=== PATIENT | female | born 1980 ===

== ENCOUNTER → 2020-07-29 10:59 | Outpatient (BNVA) | payer OTHER, SELFPAY | PROVIDERS: PCP Internal Medicine; Visit Provider Orthopaedic Surgery | DX: G56.01 Carpal tunnel syndrome, right upper limb (principal); M65.311 Trigger thumb, right thumb | CPT/HCPCS: 99202 ==

== ENCOUNTER 2020-11-25 15:00 | Outpatient (RCR) | payer OTHER, SELFPAY | END 2021-02-27 08:59 | disposition home or self-care (01) | LOC: HO.OT 15:00 | PROVIDERS: PCP Internal Medicine; Visit Provider Internal Medicine | DX: I67.5 Moyamoya disease (principal); R53.1 Weakness; Z86.73 Personal history of transient ischemic attack (TIA), and cerebral infarction without residual deficits | CPT/HCPCS: 97110; 97140; 97167 ==

== ENCOUNTER → 2021-01-28 10:30 | Outpatient (BNVA) | payer OTHER, SELFPAY | PROVIDERS: PCP Internal Medicine; Visit Provider Nurse Practitioner Family | DX: R53.1 Weakness (principal); I67.5 Moyamoya disease; I69.30 Unspecified sequelae of cerebral infarction; F19.90 Other psychoactive substance use, unspecified, uncomplicated; M53.3 Sacrococcygeal disorders, not elsewhere classified; M25.561 Pain in right knee | CPT/HCPCS: 99202 ==

== ENCOUNTER → 2021-06-12 13:52 | Outpatient (BNVA) | payer OTHER, SELFPAY | PROVIDERS: PCP Internal Medicine; Referring Provider Internal Medicine; Visit Provider Physician Assistant Surgical ==

== ENCOUNTER → 2021-06-16 08:05 | Outpatient (BNVA) | payer OTHER, SELFPAY | PROVIDERS: PCP Internal Medicine; Visit Provider Surgery ==

== ENCOUNTER → 2021-07-22 08:09 | Outpatient (BNVA) | payer OTHER, SELFPAY | PROVIDERS: PCP Internal Medicine; Visit Provider Dietitian, Registered | DX: E66.01 Morbid (severe) obesity due to excess calories (principal); Z68.37 Body mass index [BMI] 37.0-37.9, adult | CPT/HCPCS: 97802 ==

== ENCOUNTER 2023-05-11 14:18 | Outpatient (AMB) | payer MEDICARE, SELFPAY ==
[2023-05-11 14:21] VITALS: BP 140/92; PULSE 88; O2SAT 99; BMI 34.9
--- NOTE | 2023-05-11 14:21 | AM.OFFVISMDC ---
Intake Vital Signs 05/11/23 14:21 Height 5 ft 4.5 in Weight 206 lb 8 oz BMI 34.9 BP 140/92 H Blood Pressure Location Lt brachial Position Sitting Pulse 88 Pulse Source Pulse Oximeter Pulse Oximetry (%) 99 Oxygen Delivery Method Room Air Intake Visit Reasons: AWV Tour Sales Representative Required: No Photographic Laboratory Supervisor: Photographic Laboratory Supervisor Present Accompanied by: Spouse Allergies levofloxacin [From LEVAQUIN] Allergy (Unknown, Verified 05/11/23 14:22) UNKNOWN HPI HPI Comments History of Present Illness Details 42-year-old female past medical history significant for hypertension, high cholesterol, substance use disorder, major depression, chronic pain syndrome, obesity, anxiety, GERD right foot. Patient last seen in November 2019 patient presents today for subsequent annual wellness visit. Pap smear: Referral entered. mammogram: ordered eye exam: UTD Patient reports lingering right sided weakness from past stroke. Patient requesting to continue PT with Corinna MARCUSA, form signed. Patient reports recent insurance issues and states she has been unable to follow-up with her psychiatrist, patient requesting refills on amitriptyline, Abilify 10 mg at bedtime and her clonazepam. Patient made aware that one-month supply will be sent on daily medications and 10 day supply sent on clonazepam 1 mg b.i.d. p.r.n. QT#20. Patient made aware future refills will need to come for her psychiatrist or will be up to the discretion of her primary care provider. [place] of care was reviewed with patient patient was provided with a written screening schedule. Healthcare proxy and MOLST forms reviewed with patient patient advised to bring completed forms in office to be scanned into chart. [facility] Medical History GERD (gastroesophageal reflux disease) Anxiety Depression Migraines Morbid obesity Chronic pain syndrome Carpal tunnel syndrome on right Substance use disorder Neck pain History of stroke with current residual effects High cholesterol Hypertension H/O stroke without residual deficits Surgical History H/O brain surgery History of cholecystectomy Family History Mother High blood pressure Cycloid psychosis Mental health disorder Father High blood pressure Diabetes 1.5, managed as type 2 Liver disease Substance use disorder Mental health disorder Sister Mental health disorder Sister Mental health disorder Social History Housing: Apartment Alcohol intake: former Patient Tobacco Use Status: Current everyday Tobacco user Tobacco use type: Cigarette Cigarettes Per Day: 7 e-Cigarette/Vaping Use: Never Used service: No Current occupational status: unemployed and disabled Current occupation: disability Cognitive needs: Yes Hearing needs: No Vision needs: No Questionnaire Medicare Wellness Checkup What gender do you identify with?: female During the past 4 weeks, how much have you been bothered by emotional problems such as feeling anxious, depressed, irritable, sad or downhearted, and blue?: extremely During the past 4 weeks, has your physical & emotional health limited your social activities with family, friends, neighbors, or groups?: moderately During the past 4 weeks, how much bodily pain have you generally had?: moderate pain During the past 4 weeks, was someone available to help you if you needed & wanted help?: yes, quite a bit During the past 4 weeks, what was the hardest physical activity you could do for at least 2 minutes?: light Can you get to places out of walking distance without help? (For eg., can you travel alone on buses, taxis or drive your car?): No Can you go shopping for groceries or clothes without someone's help?: No Can you prepare your own meals?: No Can you do your housework without help?: No Because of any health problems, do you need the help of another person with your personal care needs such as eating, bathing, dressing or getting around the house?: Yes Can you handle your own money without help?: Yes During the past 4 weeks, how would you rate your health in general?: fair During the past 4 weeks how have things been going for you?: good & bad parts about equal Are you having difficulties driving your car?: not applicable, I don't use a car Do you always fasten your seat belt when you are in a car?: yes, usually During past 4 weeks, have you been bothered by the following: seldom: Sexual problems? and Teeth or denture problems?, sometimes: Falling or dizzy when standing up, Trouble eating well? and Problems using the telephone? and always: Tiredness or fatigue? Have you fallen 2 or more times in the past year?: Yes Are you afraid of falling?: Yes Are you a smoker?: yes, and I might quit During the past 4 weeks, how many drinks of wine, beer, or other alcoholic beverages did you have?: 1 drink or less per week Do you exercise for about 20 minutes 3 or more times a week?: no, I usually do not exercise this much Have you been given information to help with the following?: yes: Keeping track of your medications? and no: Hazards in your house that might hurt you? How often do you have trouble taking medicines the way you have been told to take them?: I always take medicine as prescribed How confident are you that you can control & manage most of your health problems?: somewhat confident What is your race?: Black or (White ) Mini Mental State Exam (MMSE) Orientation What is the (year) (season) (date) (day) (month)?: year, season, date, day and month Score Score: 5 Activity of Daily Living Bathing - sponge bath, tub bath or shower: receives help in bathing only one body part (such as back or leg) Dressing - getting clothes from closets & drawers, including inner/outer garments & fasteners.: gets clothes & gets dressed without help, except for help tying shoes Toileting - going to the 'toilet room' for urine/bowel elimination & cleaning self/arranging clothes: receives help going to toilet room, cleaning self or arranging clothes Transfer: moves in & out of bed and chair without help (may use support object) Continence: controls urination/bowel movements completely by self Feeding: feeds self without help Total Score: 0 Information obtained from: patient Using telephone: independent Traveling: dependent Shopping: needs assistance Preparing meals: needs assistance Housework: needs assistance Taking medicine: needs assistance Managing money: needs assistance PHQ-9 Over the last 2 weeks, how often have you been bothered by any of the following problems? 1. Little interest or pleasure in doing things: several days 2. Feeling down, depressed, or hopeless: more than half the days 3. Trouble falling or staying asleep, or sleeping too much: nearly every day 4. Feeling tired or having little energy: more than half the days 5. Poor appetite or overeating: not at all 6. Feeling bad about yourself - or that you are a failure or have let yourself or your family down: several days 7. Trouble concentrating on things, such as reading the newspaper or watching television: more than half the days 8. Moving or speaking so slowly that other people could have noticed. Or the opposite - being so fidgety or restless that you have been moving around a lot more than usual: nearly every day 9. Thoughts that you would be better off or of hurting yourself in some way: not at all Total score: 14 Depression Screening Interpretation: Positive Depression Screening Follow-up: In treatment Depression Screening Done: Yes 21265 - PHQ-9 Billing: Yes Source: Developed by Drs. Ramsey Winn, Mariam Huerta, Mickey Vazquez and colleagues, with an educational jadon from [employer]. Physical Exam Vital Signs: Last Vital Signs Pulse 88 05/11/23 14:21 BP 140/92 H 05/11/23 14:21 Pulse Ox 99 05/11/23 14:21 Oxygen Delivery Method Room Air 05/11/23 14:21 BMI result Body Mass Index 34.9 Const General: cooperative and no acute distress Orientation/consciousness: patient oriented x3 HEENT Ears: other (whisper test: pass) Neuro General: patient oriented x3 Gait exam (Neuro): Normal gait present Coordination: tandem gait normal and Romberg test negative Assessment & Plan Assessment & Plan (1) Hypertension: Code(s): I10 - Essential (primary) hypertension Qualifiers: Hypertension type: essential hypertension Qualified Code(s): I10 - Essential (primary) hypertension Plan: Lisinopril 20 mg sent to patient's pharmacy Follow low-salt diet and exercise (2) High cholesterol: Code(s): E78.00 - Pure hypercholesterolemia, unspecified Plan: Continue on atorvastatin 80 mg daily. Follow low-cholesterol diet. (3) Medicare annual wellness visit, subsequent: Code(s): Z00.00 - Encounter for general adult medical examination without abnormal findings Plan: Follow-up in 1 year for subsequent annual wellness visit (4) Depression: Code(s): F32.A - Depression, unspecified Plan: One-month supply sent on patient's amitriptyline, Abilify and clonazepam; QT 20 Patient advised to reestablish care with her psychiatrist. Future refills will be up to the discretion of her primary care provider. Plan Follow up in 1 year for [facility] Orders: Orders Comprehensive [place]. Panel Fast 05/11/23 I10 - Essential (primary) hypertension Lipid Panel 05/11/23 Z13.220 - Encounter for screening for lipoid disorders TSH reflex Free T4 05/11/23 Z13.29 - Encounter for screening for other suspected endocrine disorder MM screening mammo BI 05/11/23 Z12.31 - Encounter for screening mammogram for malignant neoplasm of breast Complete Blood Count Auto Diff 05/11/23 Z13.0 - Encounter for screening for diseases of the blood and blood-forming organs and certain disorders involving the immune mechanism Referrals LABELING SPECIALIST Referral Z12.4 - Encounter for screening for malignant neoplasm of cervix Medications: New aripiprazole (Abilify) 10 mg PO BEDTIME 30 tabs 0RF Changed From clonazepam 1 mg PO TID PRN 30 tabs 0RF anxiety To clonazepam 1 mg PO BID PRN 20 tabs 0RF anxiety Refilled clopidogrel 75 mg PO DAILY 30 tabs 0RF amitriptyline 50 mg (2 x 25 mg) PO BEDTIME 60 tabs 1RF atorvastatin 80 mg PO DAILY 90 tabs 1RF lisinopril 20 mg PO DAILY 90 tabs 1RF Quality Reporting (2019) Depression/Bipolar (159/160/161/177) PHQ-9: Total score: 14 Coding Level of Care Code Medicare Subsequent (G0439) Diagnoses Essential hypertension I10 Hypertension type: essential hypertension High cholesterol E78.00 Medicare annual wellness visit, subsequent Z00.00 Depression F32.A CPT Codes Advance Care Planning - Time spent: 1-15 minutes, on File ([id number]) Advance Care Planning Date of discussion: 05/11/23 Forms completed: Health Care Proxy and MOLST Time spent: 1-15 minutes, on File Actual minutes spent: 2
== END 2023-05-11 15:04 | disposition home or self-care (01) ==
PROVIDERS: PCP Internal Medicine; Visit Provider Nurse Practitioner Family
DX: I10 Essential (primary) hypertension (principal); E78.00 Pure hypercholesterolemia, unspecified; Z00.00 Encounter for general adult medical examination without abnormal findings; F32.A Depression, unspecified
CPT/HCPCS: 1123F; G0439

== ENCOUNTER 2023-06-14 12:56 | Outpatient (AMB) | payer MEDICARE, SELFPAY ==
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
[2023-06-14 13:18] VITALS: BP 146/80; PULSE 81; O2SAT 99; BMI 33.8
== END 2023-06-14 14:06 | disposition home or self-care (01) ==
PROVIDERS: PCP Internal Medicine; Visit Provider Internal Medicine
DX: S93.601A Unspecified sprain of right foot, initial encounter (principal); R53.1 Weakness
CPT/HCPCS: 99214

== ENCOUNTER 2023-06-14 14:17 | Outpatient (REF) | payer MEDICARE, SELFPAY | END 2023-06-14 14:18 | disposition home or self-care (01) | LOC: HO.XRAY 14:17 | PROVIDERS: PCP Internal Medicine; Visit Provider Internal Medicine | DX: Z13.89 Encounter for screening for other disorder (principal) ==

== ENCOUNTER 2023-06-18 15:26 | Outpatient (REF) | payer OTHER, MEDICARE, SELFPAY ==
--- NOTE | ~2023-06-18 | XR_ITS ---
EXAMINATION: XR FOOT, RIGHT CLINICAL INFORMATION: Sprain/injury COMPARISON: None available. TECHNIQUE: AP, lateral, and oblique views of the right foot. FINDINGS: Medial soft tissues of the foot appear prominent. Bony density identified adjacent to the navicular on AP view. Dorsal spurring on lateral view. Calcaneal spurring. XR/XR foot RT min 3V IMPRESSION: Soft tissue swelling medial foot. Accessory navicular versus fracture, correlate clinically.
== END 2023-06-18 15:27 | disposition home or self-care (01) ==
LOC: HO.XRAY 15:26
PROVIDERS: PCP Internal Medicine; Visit Provider Internal Medicine
DX: S93.601A Unspecified sprain of right foot, initial encounter (principal)
CPT/HCPCS: 73630

== ENCOUNTER 2023-07-05 13:50 | Outpatient (AMB) | payer MEDICARE, SELFPAY ==
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
[2023-07-05 14:08] VITALS: BMI 33.8
== END 2023-07-05 14:46 | disposition home or self-care (01) ==
PROVIDERS: PCP Internal Medicine; Visit Provider Physician Assistant
DX: S92.251A Displaced fracture of navicular [scaphoid] of right foot, initial encounter for closed fracture (principal)
CPT/HCPCS: 99213

== ENCOUNTER → 2023-07-05 13:50 | Outpatient (BNVA) | payer MEDICARE, MEDICAID, SELFPAY | PROVIDERS: PCP Internal Medicine; Visit Provider Physician Assistant | DX: S92.251A Displaced fracture of navicular [scaphoid] of right foot, initial encounter for closed fracture (principal) | CPT/HCPCS: 99212 ==

== ENCOUNTER 2023-08-16 10:01 | Outpatient (AMB) | payer MEDICARE, SELFPAY ==
--- NOTE | 2023-08-16 10:04 | A.OFFVIS_ITS ---
Intake Vital Signs 08/16/23 10:11 Height 5 ft 4.5 in Weight 200 lb BMI 33.8 Intake Visit Reasons: OV- possible RT Foot navicular fracture-follow up Intake Note: Phuong a 42 year old female presents today for a follow up s/p fracture of navicular bone of right foot, DOI 06/02/23. Patient reports she is unable to move her middle or big toe. She weaned out of walking boot into a regular shoe a couple of days ago. Finds some relief with Motrin. Allergies levofloxacin [From LEVAQUIN] Allergy (Unknown, Verified 08/16/23 10:11) UNKNOWN HPI OV- possible RT Foot navicular fracture-follow up HPI Details 42-year-old female who returns to the [facility] today for a follow-up of right foot fracture, 06/02/23. She states she is unable to move her middle or big toe. She has discontinued her walking boot and has been using a regular shoe for about 2 days. She finds mild relief with Motrin. She has no other concerns today. [facility] Medical History (Updated 08/17/23 @ 16:09 by Marshall Schultz PA-C) GERD (gastroesophageal reflux disease) Anxiety Depression Migraines Morbid obesity Chronic pain syndrome Carpal tunnel syndrome on right Substance use disorder Neck pain History of stroke with current residual effects High cholesterol Hypertension H/O stroke without residual deficits Surgical History History of foot surgery H/O brain surgery History of cholecystectomy Family History Mother High blood pressure Cycloid psychosis Mental health disorder Father High blood pressure Diabetes 1.5, managed as type 2 Liver disease Substance use disorder Mental health disorder Sister Mental health disorder Sister Mental health disorder Social History Housing: Apartment Alcohol intake: former Patient Tobacco Use Status: Current everyday Tobacco user Tobacco use type: Cigarette Cigarettes Per Day: 2 e-Cigarette/Vaping Use: Never Used Second Hand Smoke Exposure: Yes service: No Current occupational status: unemployed and disabled Current occupation: disability Cognitive needs: Yes Hearing needs: No Vision needs: No Review of Systems Const All systems reviewed & are unremarkable except as noted in HPI and below Physical Exam Vital Signs: BMI result Body Mass Index 33.8 Extrem Other: Right foot: Normal to inspection. No swelling. She has mild swelling at the dorsum of foot over the lateral edge. No pain over the base of 5th metatarsal. No pain over the medial and lateral malleolus. She has good temperature and color. Pulses are present. ROM could not be performed as she has paralysis from a previous stroke. Results Reviewed Results Reviewed: xrays of the right foot obained in the ED show navicuar avulsion fragment of underminate age - there does appear to be some callus formation since previous imaging Assessment & Plan Assessment & Plan (1) Avulsion fracture of navicular bone of foot: Code(s): S92.253A - Displaced fracture of navicular [scaphoid] of unspecified foot, initial encounter for closed fracture Qualifiers: Encounter type: subsequent encounter Fracture type: closed Laterality: right Fracture healing: with routine healing Qualified Code(s): S92.251D - Displaced fracture of navicular [scaphoid] of right foot, subsequent encounter for fracture with routine healing Plan She was transitioned to a lace up ankle brace which she will continue to use along with physical therapy to work on ROM, strengthening and proprioceptive training. She can increase activity as tolerated and If symptoms persist or worsens over 6-8 weeks, patient will contact the office, otherwise follow-up as needed. 6-8 weeks Orders: Orders XR foot RT min 3V 08/16/23 S92.351A - Displaced fracture of fifth metatarsal bone, right foot, initial encounter for closed fracture PT Evaluation and Treatment 08/16/23 S92.253A - Displaced fracture of navicular [scaphoid] of unspecified foot, initial encounter for closed fracture Patient Instructions: Scribed for Marshall Schultz PA-C, by David Aceves medical administrative assistant, on 08/16/2023 at 10:00 AM EST. IMarshall PA-C, have personally reviewed and agree with the information entered by the scribe. Coding Level of Care Code Global (33180) Diagnoses Closed avulsion fracture of navicular bone of right foot with routine healing, subsequent encounter S92.251D Encounter type: subsequent encounter Fracture type: closed Laterality: right Fracture healing: with routine healing
[2023-08-16 10:11] VITALS: BMI 33.8
== END 2023-08-16 11:57 | disposition home or self-care (01) ==
PROVIDERS: PCP Internal Medicine; Visit Provider Physician Assistant
DX: S92.251D Displaced fracture of navicular [scaphoid] of right foot, subsequent encounter for fracture with routine healing (principal)
CPT/HCPCS: 99213

== ENCOUNTER 2023-08-16 16:55 | Outpatient (REF) | payer OTHER, MEDICARE, SELFPAY ==
--- NOTE | ~2023-08-16 | XR_ITS ---
EXAMINATION: XR FOOT, RIGHT CLINICAL INFORMATION: Fracture of the fifth metatarsal bone. COMPARISON: Radiograph right foot 06/18/2023. TECHNIQUE: AP, lateral, and oblique views of the right foot. FINDINGS: Again noted well-corticated osseous fragment adjacent to the navicular bone, suggestive of accessory navicular versus old fracture. No acute fractures or subluxation. Normal radiographic appearance of the fifth metatarsal. Mild degenerative arthrosis of the first MTP joint. Prominent bony productive changes along the dorsal surface of the navicular bone on the lateral view, sequela of degenerative changes. Moderate size calcaneal spurs. Os trigonum. XR/XR foot RT min 3V IMPRESSION: 1. No acute fractures or subluxation. 2. Chronic findings as above.
== END 2023-08-16 16:56 | disposition home or self-care (01) ==
LOC: HO.HOSX 16:55
PROVIDERS: Visit Provider Physician Assistant
DX: S92.251D Displaced fracture of navicular [scaphoid] of right foot, subsequent encounter for fracture with routine healing (principal)
CPT/HCPCS: 73630; 99212

== ENCOUNTER 2023-10-27 10:03 | Outpatient (AMB) | payer MEDICARE, MEDICAID, SELFPAY ==
--- NOTE | 2023-10-27 10:07 | MHC.PC.OV ---
Vital Signs 10/27/23 10:09 Height 5 ft 4.5 in Weight 211 lb 4 oz BMI 35.7 BP 110/60 Blood Pressure Location Lt brachial Position Sitting Pulse 70 Pulse Source Pulse Oximeter Pulse Oximetry (%) 100 Oxygen Delivery Method Room Air Intake Visit Reasons: 3mth f/u med Intake Note: Patient is here to follow up on Chronic pain disorder, HTN, GERD. Hospital Personnel Director Required: No Machine Lay Out Worker: Present Accompanied by: Significant Other Allergies levofloxacin [From LEVAQUIN] Allergy (Unknown, Verified 10/27/23 11:04) UNKNOWN Medication List - Last Reconciled 10/27/23 by Jose Khoury MD amitriptyline 50 mg (2 x 25 mg) PO BEDTIME aripiprazole (Abilify) 10 mg PO BEDTIME atorvastatin 80 mg PO DAILY cholecalciferol (vitamin D3) (Vitamin D3) 50 mcg PO DAILY clonazepam 1 mg PO BID PRN clopidogrel 75 mg PO DAILY cyclobenzaprine 5 mg PO BID PRN 30 days furosemide 20 mg PO BID 10 days gabapentin 800 mg PO TID 15 days ibuprofen 800 mg PO DAILY lisinopril 20 mg PO DAILY miscellaneous medical supply 1 ea miscellaneous DAILY nicotine 1 patch transdermal DAILY Tobacco use date assessed: 10/27/23 Dental Screening Dental Screen Date: 06/14/23 HPI 3mth f/u med HPI Details 43-year-old female presents to the office to discuss her chronic medical conditions. She is accompanied by her CAKE INSPECTOR. Patient reports that she has been doing well since her last office visit. Her foot pain is much better. She now has permanent weakness in her right upper arm and right lower leg. She needs assistance while walking. Currently, she is holding on to her CAKE INSPECTOR while ambulating. She needs help to get on and out of bed, with her clothing and combing hair. She is able to use the toilet independently. Needs assistance with brushing hair. Does not drive at all. Appetite is normal. Continues to see her psychiatrist and has an upcoming appointment on November 09. Patient is getting her Abilify, clonazepam through him. Patient was seeing a information technology consultant and no longer sees him. She sees a neurologist once a year for her moyamoya disease. She is on Plavix for the same. [facility] Medical History GERD (gastroesophageal reflux disease) Anxiety Depression Migraines Morbid obesity Chronic pain syndrome Carpal tunnel syndrome on right Substance use disorder Neck pain History of stroke with current residual effects High cholesterol Hypertension H/O stroke without residual deficits Surgical History History of foot surgery H/O brain surgery History of cholecystectomy Family History Mother High blood pressure Cycloid psychosis Mental health disorder Father High blood pressure Diabetes 1.5, managed as type 2 Liver disease Substance use disorder Mental health disorder Sister Mental health disorder Sister Mental health disorder Social History Housing: Apartment Alcohol intake: former Patient Tobacco Use Status: Current everyday Tobacco user Tobacco use type: Cigarette Cigarettes Per Day: 6 e-Cigarette/Vaping Use: Never Used Second Hand Smoke Exposure: Yes service: No Current occupational status: unemployed and disabled Current occupation: disability Cognitive needs: Yes Hearing needs: No Vision needs: No Questionnaire Thrive Questionnaire Date Thrive assessed: 06/14/23 TRUDY-7 AMB Questionnaire TRUDY-7 Date TRUDY - 7 assessed: 06/14/23 Source: Developed by Drs. Ramsey Winn, Mariam Huerta, Mickey Vazquez and colleagues, with an educational jadon from [employer]. Physical exam (Primary Care) Vital Signs: Last Vital Signs Pulse 70 10/27/23 10:09 BP 110/60 10/27/23 10:09 Pulse Ox 100 10/27/23 10:09 Oxygen Delivery Method Room Air 10/27/23 10:09 Care Plan Goal for BP management: Blood pressure is in range. BMI result Body Mass Index 35.7 BMI Assessment/Plan discussion: High (1 lb per week weight loss suggested.) BMI High, discussed plan: lifestyle, weight reduction, dietary and physical activity Tobacco/Smoking Status: Tobacco use Status Tobacco use date assessed 10/27/23 10/27/23 10:14 Patient Tobacco Use Status Current everyday Tobacco 10/27/23 10:14 Tobacco use type Cigarette 10/27/23 10:14 e-Cigarette/Vaping Use Never Used 10/27/23 10:14 Are you ready to quit: No Thrive Assessment: Date of Thrive Assessment Date Thrive assessed 06/14/23 10/27/23 10:14 Const General: cooperative and healthy appearing Nutritional Appearance: well nourished Orientation/consciousness: patient oriented x3 Limitations: no limitations HENMT Head: Yes normal to inspection Eyes General: appearance normal, both eyes and all related structures Neck Neck: Yes normal visual inspection Chest Chest palpation & inspection: normal palpation of entire chest wall Resp Effort & Inspection: normal respiratory effort Neuro Other: Residual motor deficit in the right upper and lower extremity. General: patient oriented x3 Assessment and Plan Assessment & Plan (1) Morbid obesity: Code(s): E66.01 - Morbid (severe) obesity due to excess calories Plan: Counseling on the importance of diet and exercise done. (2) Major depression: Code(s): F32.9 - Major depressive disorder, single episode, unspecified Plan: Patient is receiving care through the psychiatrist. Continue current medications. (3) Moyamoya disease: Code(s): I67.5 - Moyamoya disease Plan: Her neurologist will be consulted. Should Plavix be continued? This has to be discussed with a neurologist. (4) Hypertension: Code(s): I10 - Essential (primary) hypertension Qualifiers: Hypertension type: essential hypertension Qualified Code(s): I10 - Essential (primary) hypertension Plan: Blood pressure is stable. Continue current medications Medications: Refilled cyclobenzaprine 5 mg PO BID PRN 60 tabs 1RF muscle spasm 30 days Discontinued verapamil Discontinued Reason: Doctor's Order 40 mg PO DAILY PRN 30 tabs 0RF migraines MDD one tab Coding Level of Care Code Est Pt Level 4 (40521) Complex EM visit Add On G2211 Diagnoses Morbid obesity E66.01 Major depression F32.9 Moyamoya disease I67.5 Essential hypertension I10 Hypertension type: essential hypertension
[2023-10-27 10:09] VITALS: BP 110/60; PULSE 70; O2SAT 100; BMI 35.7
== END 2023-10-27 10:58 | disposition home or self-care (01) ==
PROVIDERS: PCP Internal Medicine; Visit Provider Internal Medicine
DX: F33.9 Major depressive disorder, recurrent, unspecified (principal); I67.5 Moyamoya disease; I10 Essential (primary) hypertension
CPT/HCPCS: 99214; G2211

== ENCOUNTER 2024-02-03 14:55 | Outpatient (AMB) | payer MEDICARE, MEDICAID, SELFPAY ==
--- NOTE | 2024-02-03 14:56 | A.OFFPC_ITS ---
Vital Signs 02/03/24 14:58 Height 5 ft 4.5 in Weight 208 lb BMI 35.1 BP 136/70 Blood Pressure Location Rt brachial Position Sitting Pulse 82 Pulse Source Pulse Oximeter Pulse Oximetry (%) 96 Oxygen Delivery Method Room Air Intake Visit Reasons: 3mth f/u Intake Note: Patient is here to follow up on GERD, Chronic Pain, HTN. Concern of broken right leg, waiting for Orth appt on 03/09/24. Tub Operator Required: No Commercial Insulator: Present Accompanied by: Significant Other Allergies levofloxacin [From LEVAQUIN] Allergy (Unknown, Verified 02/03/24 14:57) UNKNOWN Tobacco use date assessed: 02/03/24 Dental Screening Dental Screen Date: 06/14/23 HPI 3mth f/u HPI Details 43-year-old female presents to the offic e to discuss her chronic medical conditions. Patient comes in a wheelchair and is accompanied by a male director of flight operations. Patient slipped from a sliding chair at home. She twisted her right ankle. She was seen at the emergency room and a diagnosis of fracture of the lateral malleolus was made. Patient was provided with a boot. She is awaiting an orth opedic appointment. In addition, she is requesting a refill on her amitriptyline, gabapentin and clonazepam. She is still getting settled in with her psychiatrist and is requesting an interim supply of clonazepam. [facility] Medical History GERD (gastroesophageal reflux disease) Anxiety Depression Migraines Morbid obesity Chronic pain syndrome Carpal tunnel syndrome on right Substance use disorder Neck pain History of stroke with current residual effects High cholesterol Hypertension H/O stroke without residual deficits Surgical History History of foot surgery H/O brain surgery History of cholecystectomy Family History Mother High blood pressure Cycloid psychosis Mental health disorder Father High blood pressure Diabetes 1.5, managed as type 2 Liver disease Substance use disorder Mental health disorder Sister Mental health disorder Sister Mental health disorder Social History Housing: Apartment Alcohol intake: former Patient Tobacco Use Status: Current everyday Tobacco user Tobacco use type: Cigarette Cigarette Packs Per Day: 0.5 Cigarettes Per Day: 6 e-Cigarette/Vaping Use: Never Used Second Hand Smoke Exposure: Yes service: No Current occupational status: unemployed and disabled Current occupation: disability Cognitive needs: Yes Hearing needs: No Vision needs: No Questionnaire Thrive Questionnaire Date Thrive assessed: 06/14/23 TRUDY-7 AMB Questionnaire TRUDY-7 Date TRUDY - 7 assessed: 06/14/23 Source: Developed by Drs. Ramsey Winn, Mariam Huerta, Mickey Vazquez and colleagues, with an educational jadon from [employer]. Fall Risk Assessment Fall Risk Assessment Fall risk assessment: 2 + Falls in past year (3 falls within a week.) Physical exam (Primary Care) Vital Signs: Last Vital Signs Pulse 82 02/03/24 14:58 BP 136/70 02/03/24 14:58 Pulse Ox 96 02/03/24 14:58 Oxygen Delivery Method Room Air 02/03/24 14:58 BMI result Body Mass Index 35.1 Tobacco/Smoking Status: Tobacco use Status Tobacco use date assessed 02/03/24 02/03/24 15:11 Patient Tobacco Use Status Current everyday Tobacco 02/03/24 14:56 Tobacco use type Cigarette 02/03/24 14:56 e-Cigarette/Vaping Use Never Used 02/03/24 14:56 Thrive Assessment: Date of Thrive Assessment Date Thrive assessed 06/14/23 02/03/24 14:56 Extrem Other: Right ankle: Swelling over the ankle and the front of the foot. Patient does not want to try weight-bearing. Assessment and Plan Assessment & Plan (1) Substance use disorder: Code(s): F19.90 - Other psychoactive substance use, unspecified, uncomplicated Plan: Continue methadone at same dosage. (2) Fracture of right ankle, lateral malleolus: Code(s): S82.61XA - Displaced fracture of lateral malleolus of right fibula, initial encounter for closed fracture Plan: X-ray report from the emergency room requested and reviewed. An oblique, nondisplaced fracture of the lateral malleolus is reported. Orthopedics will be contacted to see if an earlier appointment can be made. Medications: Refilled amitriptyline 50 mg (2 x 25 mg) PO BEDTIME 60 tabs 1RF clonazepam 1 mg PO BID PRN 20 tabs 0RF anxiety gabapentin 800 mg PO TID 45 tabs 0RF 15 days Coding Level of Care Code Est Pt Level 4 (03300) Complex EM visit Add On G2211 Diagnoses Substance use disorder F19.90 Fracture of right ankle, lateral malleolus S82.61XA
[2024-02-03 14:58] VITALS: BP 136/70; PULSE 82; O2SAT 96; BMI 35.1
== END 2024-02-03 15:51 | disposition home or self-care (01) ==
PROVIDERS: PCP Internal Medicine; Visit Provider Internal Medicine
DX: F19.90 Other psychoactive substance use, unspecified, uncomplicated (principal); S82.61XA Displaced fracture of lateral malleolus of right fibula, initial encounter for closed fracture
CPT/HCPCS: 99214; G2211

== ENCOUNTER 2024-02-25 11:22 | Outpatient (REF) | payer MEDICARE, SELFPAY ==
--- NOTE | ~2024-02-25 | XR_ITS ---
EXAMINATION: XR ANKLE, RIGHT CLINICAL INFORMATION: M25.571 - Pain in right ankle and joints of right foot COMPARISON: Collated to the right foot x-ray dated August 16, 2023 TECHNIQUE: AP, lateral, and mortise views of the right ankle. FINDINGS: Cortical disruption in the abdominal fashion involving the distal metaphysis of the right fibula/lateral malleolus. There is a 5 mm calcified the tibia medial malleolus tarsal joint. There is a cortical disruption in the dome talus. There is a soft tissue contusion lateral malleolus. XR/XR ankle RT min 3V IMPRESSION: Acute fracture lateral malleolus resulting in asymmetric subluxation at the medial malleolus tibial junction likely unstable. Fracture through the dome of the talus. Message delivered to the doctor's office on May 05, 2024 at 4:15 PM Electronically signed by: Jigar Sharma MD 05/05/2024 04:18 PM NEVIN REYES
== END 2024-02-25 11:23 | disposition home or self-care (01) ==
LOC: HO.XRAY 11:22
PROVIDERS: PCP Internal Medicine; Visit Provider Physician Assistant
DX: S82.891A Other fracture of right lower leg, initial encounter for closed fracture (principal); M25.571 Pain in right ankle and joints of right foot
CPT/HCPCS: 73610; 99212

== ENCOUNTER 2024-02-25 11:22 | Outpatient (AMB) | payer MEDICARE, SELFPAY ==
--- NOTE | 2024-02-25 11:40 | MHC.OFFVIS ---
Vital Signs 02/25/24 12:30 Height 5 ft 4.5 in Weight 208 lb BMI 35.1 Intake Visit Reasons: ER follow up- right ankle Intake Note: Phuong a 43 year old female who presents today for an ER follow up of right ankle, DOI ~01/30/24. Patient reports having a fall injuring her jessica rivero, she presented to [facility] a couple of days later where an xray was taken and placed in a walking boot. She followed up with her PCP who referred her to orthopedics. Currently she has constant pain that increases with weight bear. Her pain is located across the anterior aspect of ankle. Denies numbness or tingling. No relief with Tylenol or Motrin. Allergies levofloxacin [From LEVAQUIN] Allergy (Unknown, Verified 02/03/24 14:57) UNKNOWN chlorpromazine [From Thorazine] Allergy (Verified 02/25/24 12:31) Anaphylaxis Medication List - Last Reconciled 02/25/24 by Marshall Schultz PA-C amitriptyline 50 mg (2 x 25 mg) PO BEDTIME aripiprazole (Abilify) 10 mg PO BEDTIME atorvastatin 80 mg PO DAILY cholecalciferol (vitamin D3) (Vitamin D3) 50 mcg PO DAILY clonazepam 1 mg PO BID PRN clopidogrel 75 mg PO DAILY cyclobenzaprine 5 mg PO BID PRN 30 days furosemide 20 mg PO BID 10 days gabapentin 800 mg PO TID 15 days ibuprofen 800 mg PO DAILY [Kneeling Scooter As directed] lisinopril 20 mg PO DAILY miscellaneous medical supply 1 ea miscellaneous DAILY nicotine 1 patch transdermal DAILY tramadol 50 mg PO Q12H 7 days [Wheelchair As directed] HPI HPI ER follow up- right ankle: Details: 43-year-old female who presents to the office today for an evaluation of ER follow-up of right ankle injury after a fall, 01/30/24. She was seen at [facility] a couple of days later where x-rays were performed and she was placed in a walking boot. She was followed-up by her PCP who referred her to our office. She currently states he has constant pain at the anterior aspect of her ankle that is aggravated with weight bearing. She denies any numbness or tingling. She finds no relief with Tylenol or Motrin. FORMERLY [facility] Medical History GERD (gastroesophageal reflux disease) Anxiety Depression Migraines Morbid obesity Chronic pain syndrome Carpal tunnel syndrome on right Substance use disorder Neck pain History of stroke with current residual effects High cholesterol Hypertension H/O stroke without residual deficits Surgical History History of foot surgery H/O brain surgery History of cholecystectomy Family History Mother High blood pressure Cycloid psychosis Mental health disorder Father High blood pressure Diabetes 1.5, managed as type 2 Liver disease Substance use disorder Mental health disorder Sister Mental health disorder Sister Mental health disorder Social History Housing: Apartment Alcohol intake: former Patient Tobacco Use Status: Current everyday Tobacco user Tobacco use type: Cigarette Cigarette Packs Per Day: 0.5 Cigarettes Per Day: 6 e-Cigarette/Vaping Use: Never Used Second Hand Smoke Exposure: Yes service: No Current occupational status: unemployed and disabled Current occupation: disability Cognitive needs: Yes Hearing needs: No Vision needs: No Review of Systems Const All systems reviewed & are unremarkable except as noted in HPI and below Physical Exam Vital Signs: BMI result Body Mass Index 35.1 Extrem Other: Right ankle: Normal to inspection with diffuse swelling over the lateral malleolus with tenderness along the soft tissues. Mild discomfort along the posterior aspect of the ankle, no deformity along the Achilles tendon, negative Ugalde?s. No pain along the anterior tibia. No laxity, NVI. Results Reviewed Results Reviewed: xray of the right ankle obtained today show distal fibular fracture with evidence of callus formation and widening of the clear space Assessment & Plan Assessment & Plan (1) Closed right ankle fracture: Code(s): S82.891A - Other fracture of right lower leg, initial encounter for closed fracture Category: Medical Plan I discussed the case with Dr. Galvan over the phone. I discussed the extent of the injury to the patient and options available. Given the extent of the fracture pattern and high risk of further displacement, it is recommended that we surgically fix this to help with stability and restoring anatomy. I explained to the patient the procedure in detail along with the risks, benefits and alternatives.? I did explain with the fracture being approximately 3 weeks old, the attempt to improve the anatomy may be more difficult, but the attempt to restore the mortise would be at the least, the most beneficial for her. Risks including but not limited to infection, wound breakdown, stiffness, ongoing pain, nonunion or malunion, and possible complications with hardware. She does understand all this and would like to proceed with open reduction internal fixation of the right ankle with Dr. Galvan. She will be booked accordingly. She is on plavix due to h/o stroke and MoyaMoya, I explained her last dose would need to be Wednesday, and we will reach out to her PCP to confirm stopping the Plavix for 48-72 hrs. Orders: Orders XR ankle RT min 3V Today M25.571 - Pain in right ankle and joints of right foot Medications: New [Kneeling Scooter] As directed 1 ea 0RF duraton-99 days T14.8XXA - Other injury of unspecified body region, initial encounter tramadol 50 mg PO Q12H 14 tabs 0RF 7 days [Wheelchair] As directed 1 ea 0RF duration 99 days Patient Instructions: Scribed for Marshall Schultz PA-C, by David Aceves medical technologist clinical, on 02/25/2024 at 11:30 AM EST.? I, Marshall Schultz PA-C, have personally reviewed and agree with the information entered by the scribe. Coding Level of Care Code Est Pt Level 4 (46823) Complex EM visit Add On G2211 Diagnoses Closed right ankle fracture S82.891A
[2024-02-25 12:30] VITALS: BMI 35.1
== END 2024-02-25 13:49 | disposition home or self-care (01) ==
PROVIDERS: PCP Internal Medicine; Visit Provider Physician Assistant
DX: S82.891A Other fracture of right lower leg, initial encounter for closed fracture (principal); W19.XXXA Unspecified fall, initial encounter
CPT/HCPCS: 99214; G2211

== ENCOUNTER → 2024-02-25 12:03 | Outpatient (BNV) | payer MEDICARE, MEDICAID, SELFPAY | PROVIDERS: PCP Internal Medicine; Visit Provider Radiology Diagnostic Radiology | DX: S82.61XG Displaced fracture of lateral malleolus of right fibula, subsequent encounter for closed fracture with delayed healing (principal) | CPT/HCPCS: 73610 ==

== ENCOUNTER → 2024-03-01 08:20 | Day surgery (SDC) | payer MEDICARE, SELFPAY ==
--- NOTE | 2024-02-29 09:17 | P.CONAN_ITS ---
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 MRI shows patent bypass, but sluggish flow. Subsequent strokes after bypass, last ? 03/2023 at [facility]. Information requested Polysub abuse - ? current, ? methadone Case reviewed with Dr Gary GONZALES Active Problems Active Problems: All Active Problems Closed right ankle fracture (Acute) Avulsion fracture of navicular bone of foot (Acute) Osteoarthritis of right foot (Acute) GERD (gastroesophageal reflux disease) (Acute) Anxiety (Acute) Depression (Acute) Migraines (Acute) Morbid obesity (Acute) Snoring (Acute) Chronic pain syndrome (Acute) Major depression (Acute) Right knee pain (Acute) Sacroiliac joint pain (Acute) Right hand weakness (Acute) Right sided weakness (Acute) Moyamoya disease (Acute) Trigger finger of right thumb (Acute) Edema (Acute) Carpal tunnel syndrome on right (Acute) Substance use disorder (Acute) Neck pain (Acute) History of stroke with current residual effects (Acute) High cholesterol (Acute) Hypertension (Acute) H/O stroke without residual deficits (Acute) Past Medical History Medical History (Updated 02/29/24 @ 12:38 by Martha Roque NP) Moyamoya disease GERD (gastroesophageal reflux disease) Anxiety Depression Migraines Morbid obesity Chronic pain syndrome Carpal tunnel syndrome on right Substance use disorder Neck pain History of stroke with current residual effects High cholesterol Hypertension H/O stroke without residual deficits Family History Family History Mother High blood pressure Cycloid psychosis Mental health disorder Father High blood pressure Diabetes 1.5, managed as type 2 Liver disease Substance use disorder Mental health disorder Sister Mental health disorder Sister Mental health disorder Surgical History Surgical History History of foot surgery H/O brain surgery History of cholecystectomy Social History Social History Housing: Apartment Alcohol intake: former Patient Tobacco Use Status: Current everyday Tobacco user Tobacco use type: Cigarette Cigarette Packs Per Day: 0.5 Cigarettes Per Day: 6 e-Cigarette/Vaping Use: Never Used Second Hand Smoke Exposure: Yes service: No Current occupational status: unemployed and disabled Current occupation: disability Cognitive needs: Yes Hearing needs: No Vision needs: No Meds Allergies Allergy/AdvReac Type Severity Reaction Status Date / Time levofloxacin [From LEVAQUIN] Allergy Unknown UNKNOWN Verified 02/03/24 14:57 chlorpromazine Allergy Anaphylaxis Verified 02/25/24 12:31 [From Thorazine] Home Medications ?Medication ?Instructions ?Recorded ?Confirmed ?Last Taken ?Type nicotine 7 mg/24 hr daily 1 patch transdermal DAILY 01/01/21 02/25/24 Unknown History transdermal patch methadone 40 mg soluble tablet 480 mg PO DAILY 03/01/24 03/01/24 02/29/24 History Assessment and Plan Assessment Anesthesia Assessment: Chart Reviewed
--- NOTE | 2024-03-01 08:33 | ECG_ITS ---
Test Reason : moyamoya Blood Pressure : / mmHG Vent. Rate : 076 BPM Atrial Rate : 076 BPM P-R Int : 168 ms QRS Dur : 078 ms QT Int : 394 ms P-R-T Axes : 031 -13 004 degrees QTc Int : 443 ms Normal sinus rhythm Minimal voltage criteria for LVH, may be normal variant ( R in aVL ) Borderline ECG No previous ECGs available Referred By: Martha Roque Electronically Signed By:GLORIA STANLEY
[2024-03-01 08:45] VITALS: BP 94/88; PULSE 86; RESP 20; TEMP 36.6; O2SAT 97
[2024-03-01 09:00] LABS: UPreg QC Valid YES; Urine Pregnancy NEGATIVE (NEGATIVE)
[2024-03-01 09:12] VITALS: BMI 36.0
[2024-03-01 09:15] LABS: Amphetamine Screen Urine Not Detected (Not Detect); Barbiturates, Urine Not Detected (Not Detect); Benzodiazepines Screen Urine POSITIVE (Not Detect); Buprenorphine Scr Not Detected (Not Detect); Cannabinoid Screen Urine Not Detected (Not Detect); Cocaine Screen Urine POSITIVE (Not Detect); Fentanyl, urine POSITIVE (Not Detect); Methadone Screen, Urine Positive (Not Detect); Opiate Screen Urine Not Detected (Not Detect); Oxycodone Screen Urine Not Detected (Not Detect); Phencyclidine Screen Urine Not Detected (Not Detect)
--- NOTE | 2024-03-01 09:25 | PC.NURSE ---
positve andres hirsch made aware
[2024-03-01 09:34] LABS: Hematocrit 36.3 % (37.0-47.0); Hemoglobin 11.1 g/dl (12.0-16.0); Mean Corpuscular HGB Conc 30.6 g/dl (31.0-35.0); Mean Corpuscular Hemoglobin 21.3 pg (27.0-33.0); Mean Corpuscular Volume 69.7 fL (80.0-98.0); Mean Platelet Volume 10.9 fL (9.4-12.3); PLT CLUMP 1; Platelet Count 304 X10*3/uL (160-400); Red Blood Count 5.21 X10*6/uL (4.20-5.50); Red Cell Distribution Width 20.2 % (11.0-16.0); White Blood Count 8.7 X10*3/uL (4.8-10.8)
[2024-03-01 09:35] LABS: Anion Gap 12 (12-20); Blood Urea Nitrogen 11 mg/dL (9-16); Calcium 8.8 mg/dL (8.4-10.2); Carbon Dioxide 19 mmol/L (22-29); Chloride 111 mmol/L (96-108); Creatinine Clr Calc Pharmacy 94.7; Estimated Glomerular Filt Rate > 60; Glucose Fasting 102 mg/dL (60-99); Potassium 4.4 mmol/L (3.3-5.1); Sodium 138 mmol/L (135-145)
--- NOTE | 2024-03-01 09:48 | PC.NURSE ---
pt cxed positve utox aware ride called dr romano at bedside
== END | disposition home or self-care (01) ==
LOC: HO.SSS 08:22
PROVIDERS: Nurse Practitioner; PCP Internal Medicine; Visit Provider Orthopaedic Surgery
DX: S82.91XA Unspecified fracture of right lower leg, initial encounter for closed fracture (principal); Z53.8 Procedure and treatment not carried out for other reasons; R82.5 Elevated urine levels of drugs, medicaments and biological substances; F19.20 Other psychoactive substance dependence, uncomplicated
CPT/HCPCS: 36415; 80048; 80307; 81025; 85027; 93005; J0131; J0690

== ENCOUNTER 2024-03-09 10:51 | Outpatient (REF) | payer MEDICARE, SELFPAY | END 2024-03-09 10:52 | disposition home or self-care (01) | LOC: HO.HOSX 10:51 | PROVIDERS: Visit Provider Physician Assistant | DX: Z13.89 Encounter for screening for other disorder (principal) ==

== ENCOUNTER 2024-05-15 12:07 | Outpatient (REF) | payer MEDICARE, SELFPAY | END 2024-05-15 12:08 | disposition home or self-care (01) | LOC: HO.HOSX 12:07 | PROVIDERS: Visit Provider Physician Assistant | DX: Z13.89 Encounter for screening for other disorder (principal) ==

== ENCOUNTER 2024-09-01 10:45 | Outpatient (AMB) | payer MEDICARE, MEDICAID, SELFPAY ==
--- NOTE | 2024-09-01 10:28 | A.OFFPC_ITS ---
Intake Visit Reasons: med management Funeral Home Attendant Required: No Allergies levofloxacin [From LEVAQUIN] Allergy (Unknown, Verified 09/01/24 10:51) UNKNOWN chlorpromazine [From Thorazine] Allergy (Verified 09/01/24 10:51) Anaphylaxis Medication List - Last Reconciled 09/01/24 by Deanne More PA-C amitriptyline 50 mg (2 x 25 mg) PO BEDTIME aripiprazole 2 mg PO DAILY atorvastatin 80 mg PO DAILY cholecalciferol (vitamin D3) (Vitamin D3) 50 mcg PO DAILY clonazepam 1 mg PO BID PRN clopidogrel 75 mg PO DAILY cyclobenzaprine 5 mg PO BID PRN 30 days furosemide 20 mg PO BID 10 days gabapentin 800 mg PO TID 15 days [Kneeling Scooter As directed] lisinopril 20 mg PO DAILY methadone 480 mg PO DAILY miscellaneous medical supply 1 ea miscellaneous DAILY nicotine 1 patch transdermal DAILY [Wheelchair As directed] Tobacco use date assessed: 09/01/24 Dental Screening Dental Screen Date: 09/01/24 Did you have a dental visit in the last 12 months?: Yes Did you have a dental problem in the last 6 months where you did not have access to dental care?: No Was dental information given to patient?: Patient has dentist [facility] Medical History (Updated 09/01/24 @ 11:17 by Deanne More PA-C) Medication management Moyamoya disease GERD (gastroesophageal reflux disease) Anxiety Depression Migraines Morbid obesity Chronic pain syndrome Carpal tunnel syndrome on right Substance use disorder Neck pain History of stroke with current residual effects High cholesterol Hypertension H/O stroke without residual deficits Surgical History History of foot surgery H/O brain surgery History of cholecystectomy Family History Mother High blood pressure Cycloid psychosis Mental health disorder Father High blood pressure Diabetes 1.5, managed as type 2 Liver disease Substance use disorder Mental health disorder Sister Mental health disorder Sister Mental health disorder Social History Housing: Apartment Alcohol intake: former Patient Tobacco Use Status: Current everyday Tobacco user Tobacco use type: Cigarette Cigarette Packs Per Day: 0.25 Cigarettes Per Day: 5 e-Cigarette/Vaping Use: Never Used Second Hand Smoke Exposure: Yes service: No Current occupational status: unemployed and disabled Current occupation: disability Cognitive needs: Yes Hearing needs: No Vision needs: No Questionnaire PHQ-9 Over the last 2 weeks, how often have you been bothered by any of the following problems? 1. Little interest or pleasure in doing things: several days 2. Feeling down, depressed, or hopeless: nearly every day 3. Trouble falling or staying asleep, or sleeping too much: nearly every day 4. Feeling tired or having little energy: more than half the days 5. Poor appetite or overeating: more than half the days 6. Feeling bad about yourself - or that you are a failure or have let yourself or your family down: nearly every day 7. Trouble concentrating on things, such as reading the newspaper or watching television: several days 8. Moving or speaking so slowly that other people could have noticed. Or the opposite - being so fidgety or restless that you have been moving around a lot more than usual: several days 9. Thoughts that you would be better off or of hurting yourself in some way: not at all Total score: 16 Depression Screening Interpretation: Positive Depression Screening Follow-up: Existing condition, In treatment and Community Mental Health Worker F/U Depression Screening Done: Yes 07587 - PHQ-9 Billing: Yes Source: Developed by Drs. Ramsey Winn, Mariam Huerta, Mickey Vazquez and colleagues, with an educational jadon from [employer]. Thrive Questionnaire Date Thrive assessed: 09/01/24 I am a: Patient What is your living situation today?: I have a steady place to live Within the past 12 months, did the food you bought not last and you didn't have the money to get more?: Never true Within the past 12 months, did you worry whether your food would run out before you got money to buy more?: Never true Do you have trouble paying for medicines?: No Do you have trouble getting transportation to medical appointments?: No Do you have trouble paying your heating and electricity bill?: Yes Do you have trouble taking care of your child, family member or friend?: No Do you have trouble with day-to-day activities such as bathing, preparing meals, shopping, managing finances, etc.?: No Are you currently unemployed and looking for a job?: No Are you interested in more education?: No Please select the resources that you would like help with: Utilities Currently or been in a relationship where the following occur: No concerns reported THRIVE Score: 1 AUDIT C Alcohol Use Questionnaire (AUDIT-C) 1. How often do you have a drink containing alcohol?: Never 3. How often do you have six or more drinks on one occasion?: Never Total Score: 0 Score Reviewed/Action Taken: No TRUDY-7 AMB Questionnaire TRUDY-7 Date TRUDY - 7 assessed: 09/01/24 Feeling nervous, anxious, or on edge: 0 = Not at all Not being able to stop or control worryin = Nearly every day Worrying too much about different things: 3 = Nearly every day Trouble relaxin = Nearly every day Being so restless that it is hard to sit still: 0 = Not at all Becoming easily annoyed or irritable: 2 = More than half the days Feeling afraid as if something awful might happen: 1 = Several days Total TRUDY-7 score (0-4 normal; 5-9 mild; 10-14 moderate; 15-21 severe): 12 Source: Developed by Drs. Ramsey Winn, Mariam Huerta, Mickey Vazquez and colleagues, with an educational jadon from [employer]. TRUDY-7 Assessment Billing TRUDY-7 Assessment Tool: TRUDY-7 Assessment 43724 Physical exam (Primary Care) Tobacco/Smoking Status: Tobacco use Status Tobacco use date assessed 09/01/24 09/01/24 10:39 Patient Tobacco Use Status Current everyday Tobacco 09/01/24 10:39 Tobacco use type Cigarette 09/01/24 10:39 e-Cigarette/Vaping Use Never Used 09/01/24 10:39 PHQ-9: PHQ-9 Score PHQ-9: Total score 16 09/01/24 10:39 Depression Screening Interpretation: Positive Depression Screening Follow-up: Existing condition, In treatment and Community Mental Health Worker F/U Thrive Assessment: Date of Thrive Assessment Date Thrive assessed 09/01/24 09/01/24 10:39 Currently or been in a relationship where the following occur: No concerns reported Telehealth Telehealth Telehealth Platform: [employer] Location of provider rendering services: practice address Location of patient: address on file Patient Identification confirmed using: Name, : Yes Telehealth method: voice only Patient verbally consented to treatment: Yes Patient verbally consented to billing insurance company: Yes Patient informed of any privacy concerns related to visit: Yes Minutes spent on Phone/Video with Pt.: 15 Coding Level of Care Code Tele Est Pt Level 3 (18201) Complex EM visit Add On G2211 Diagnoses Depression F32.A Medication management Z79.899 Additional Codes TRUDY-7 Assessment Billing - TRUDY-7 Assessment Tool: TRUDY-7 Assessment 72416 ([id number]) PHQ-9 - 29268 - PHQ-9 Billing: Yes ([id number]) Assessment & Plan Assessment & Plan (1) Depression: Code(s): F32.A - Depression, unspecified Category: Medical Plan: A therapist referral will be made in conjunction with her current social media project manager to manage depressive symptoms effectively. (2) Medication management: Code(s): Z79.899 - Other long filler cigar roller machine (current) drug therapy Category: Medical Plan: Monthly consultations for medication management will continue with attention to ease monthly prescription refills, including amitriptyline. Plan Plan Patient was informed and verbally consented to the use of an ambient scribe for clinic note documentation during this visit. 1. Utility Documentation A letter to support the patient's need for electricity for her chronic trevon trevon disease and hx of strokes. Although I explained to the patient that for medical necessity letter she would need something to actually plug in for the electricity and there is nothing that she is actually using to prevent strokes that would need to be plugged in at this time. She does not have a history of asthma, COPD or obstructive sleep apnea and does not require a CPAP or nebulizer. She does not have any medications that are listed that need to be refrigerated. 2. Medication Management Monthly consultations for medication management will continue with attention to ease monthly prescription refills, including amitriptyline. 3. Depression A therapist referral will be made in conjunction with her current social media project manager to manage depressive symptoms effectively. 4. Dental Procedure Coordination Communication with the patient's dentist is required to determine necessary medication before procedures, considering the existing implant. Discussion Notes During our telehealth consultation, I discussed the necessity for medication management and logistical support with the patient. Together, we addressed her discomfort with monthly medication consultations, particularly concerning amitriptyline, and I assured her that upon Dr. Marx's return, efforts will be made to streamline these processes. We reviewed her need for consistent electricity access, patient reports she needs this for her chronic trevon trevon disease and hx of strokes. Although I explained to her that for medical necessity letter she would need something to actually plug in 4 the electricity and there is nothing that she is actually plugging and to prevent strokes. The medications she is on at this time do not need to be refrigerated. Additionally, anticipating her dental procedures, I confirmed coordination between my office and her dental provider, addressing her medical history and the potential need for antibiotics. The discussion acknowledged her depression score, and I agreed to refer her to a therapist, ensuring cohesive mental health support along with ongoing engagement with her existing social media project manager. Orders: Referrals Psychiatry Referral F32.A - Depression, unspecified Medications: New aripiprazole 2 mg PO DAILY 90 tabs 1RF Changed From amitriptyline 50 mg (2 x 25 mg) PO BEDTIME 60 tabs 1RF To amitriptyline 50 mg (2 x 25 mg) PO BEDTIME 90 days 180 tabs 1RF Refilled clonazepam 1 mg PO BID PRN 20 tabs 0RF anxiety furosemide 20 mg PO BID 10 days 20 tabs 0RF lisinopril 20 mg PO DAILY 90 tabs 1RF atorvastatin 80 mg PO DAILY 90 tabs 1RF cholecalciferol (vitamin D3) (Vitamin D3) 50 mcg PO DAILY 90 caps 1RF clopidogrel 75 mg PO DAILY 90 tabs 1RF cyclobenzaprine 5 mg PO BID 30 days PRN 60 tabs 1RF muscle spasm Patient Instructions: Patient Instructions - Continue with scheduled medication management consultations. - Expect the documentation letter for electricity utility service to arrive shortly if medically necessary. - Await communication regarding your dental appointment and necessary pre- procedure steps. - Follow up on the therapist referral for depression management, maintaining contact with your social media project manager. - Contact our office with any additional needs or questions about the plan. Scribe Plan - Not visible on output: History of Present Illness The patient is a 44-year-old female presenting with medication management, logistical challenges related to her medical conditions, and a request for documentation support. She has ongoing challenges with monthly medication refill procedures, despite appointments every three months, and is seeking clarity and ease in this process for medications, including amitriptyline. She requires documentation to support her needs regarding electricity due to her chronic trevon trevon disease and hx of strokes. She does not have a history of asthma, COPD or shift of sleep apnea and she is not utilizing any medications that need to be refrigerated at this time. She does not have any electric wheelchair at this time or necessity for an electric wheelchair. She underwent surgery with a piping implant in her head, necessitating communication between her dentist and primary care physician before dental lupis tments to ascertain medication needs, potentially antibiotics, during procedures. Additionally, she reports depression and is requesting referral to a therapist for better mental health support, while currently having a social media project manager involved in her care plan. Review of Systems - Psychiatric: Reports depression. Denies thoughts of self-harm or harm to others. - Social: Reports issues with electricity disconnection but resolved. - Neurological: History of a surgery and implant in place. - Dental: Needs dental procedures with prior communication between healthcare providers.
== END 2024-09-01 11:02 | disposition home or self-care (01) ==
LOC: HO.HMCH 10:45
PROVIDERS: PCP Internal Medicine; Visit Provider Physician Assistant Medical
DX: F32.A Depression, unspecified (principal); Z79.899 Other long term (current) drug therapy

== ENCOUNTER → 2024-09-01 10:45 | Outpatient (BNVA) | payer MEDICARE, SELFPAY | PROVIDERS: PCP Internal Medicine; Visit Provider Physician Assistant Medical | DX: F32.A Depression, unspecified (principal); Z79.899 Other long term (current) drug therapy | CPT/HCPCS: 96127 ==

== ENCOUNTER → 2024-11-17 13:39 | Outpatient (BNVA) | payer MEDICARE, MEDICAID, SELFPAY | PROVIDERS: PCP Internal Medicine; Visit Provider Surgery ==

== ENCOUNTER 2025-02-09 08:34 | Outpatient (AMB) | payer MEDICARE, MEDICAID, SELFPAY ==
[2025-02-09 17:31] VITALS: BMI 39.6
--- NOTE | 2025-02-09 17:31 | MHC.OFFVISWM ---
VS Expanded 02/09/25 17:31 Height 5 ft 4.5 in Weight 234 lb 3 oz BMI 39.6 Body Fat % 31.6 Body Fat Mass 74 Fat Free Mass 160 Visceral Fat Rating 9 Body Water Mass 114.2 Basal Metabolic Rate/Score 2,170 Intake Visit Reasons: [employer] [facility] *BMI 39.6* Allergies levofloxacin (From LEVAQUIN) Allergy (Unknown, Verified 02/09/25 17:33) UNKNOWN chlorpromazine (From Thorazine) Allergy (Verified 02/09/25 17:33) Anaphylaxis Medication List - Last Reconciled 02/09/25 by Piyush Yadav MD amitriptyline 50 mg (2 x 25 mg) PO BEDTIME 90 days aripiprazole 2 mg PO DAILY atorvastatin 80 mg PO DAILY cholecalciferol (vitamin D3) (Vitamin D3) 50 mcg PO DAILY clonazepam 1 mg PO BID PRN clopidogrel 75 mg PO DAILY cyclobenzaprine 5 mg PO BID PRN 30 days furosemide 20 mg PO BID 30 days gabapentin 800 mg PO TID [Kneeling Scooter As directed] lisinopril 20 mg PO DAILY methadone 480 mg PO DAILY miscellaneous medical supply 1 ea miscellaneous DAILY nicotine 1 patch transdermal DAILY tirzepatide (weight loss) (Zepbound) 2.5 mg (0.5 mL) subcut QWEEK [Wheelchair As directed] HPI HPI [employer] [facility] *BMI 39.6*: Details: Start time: 1pm, End time: 2pm ?I spent 45 minutes speaking with the patient on the phone plus an additional 15 minutes reviewing and updating records for a total of 60 minutes HPI Comments Details: The patient is interested in weight loss. 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 [facility] Medical History (Updated 02/09/25 @ 17:39 by Piyush Yadav MD) BMI 39.0-39.9,adult Medication management Moyamoya disease GERD (gastroesophageal reflux disease) Anxiety Depression Migraines Morbid obesity Chronic pain syndrome Carpal tunnel syndrome on right Substance use disorder Neck pain History of stroke with current residual effects High cholesterol Hypertension H/O stroke without residual deficits Surgical History History of foot surgery H/O brain surgery History of cholecystectomy Family History Mother High blood pressure Cycloid psychosis Mental health disorder Father High blood pressure Diabetes 1.5, managed as type 2 Liver disease Substance use disorder Mental health disorder Sister Mental health disorder Sister Mental health disorder Social History Housing: Apartment Alcohol intake: former Patient Tobacco Use Status: Current everyday Tobacco user Tobacco use type: Cigarette Cigarette Packs Per Day: 0.25 Cigarettes Per Day: 5 e-Cigarette/Vaping Use: Never Used Second Hand Smoke Exposure: Yes service: No Current occupational status: unemployed and disabled Current occupation: disability Cognitive needs: Yes Hearing needs: No Vision needs: No Telehealth Telehealth Telehealth Platform: Telephone Location of provider rendering services: practice address Location of patient: address on file Patient Identification confirmed using: Name, : Yes Telehealth method: voice only Patient verbally consented to treatment: Yes Patient verbally consented to billing insurance company: Yes Patient informed of any privacy concerns related to visit: Yes Minutes spent on Phone/Video with Pt.: 60 Assessment & Plan Assessment & Plan (1) Obesity: Code(s): E66.9 - Obesity, unspecified Category: Medical Qualifiers: Obesity type: due to excess calories Obesity classification: adult class 2 (BMI 35 - 39.9) Serious obesity comorbidity presence: with serious comorbidity Body mass index: BMI 39.0-39.9 Qualified Code(s): E66.812 - Obesity, class 2; E66.01 - Morbid (severe) obesity due to excess calories; Z68.39 - Body mass index [BMI] 39.0-39.9, adult Plan: 1. Due to the rare condition of Moyamoya and significant hypertension requiring 2 blood pressure medications, the Phentermine is contraindicated and the patient is in great need of losing weight. I ordered a medication to help you with the weight loss which is called Zepbound. My office will try to authorize it. Please let me know when you receive it so I can give you a meal and exercise plan. Please let me know when you have one injection left so I can prescribe the next dose.Common side effects include nausea, vomiting, constipation, diarrhea, abdominal pain. Please let me know if you develop any of these symptoms. 2. You will receive a link of our software jerrod to generate an individualized nutritional and exercise plan specific for you. Please send me a screenshot of the plans you will generate Meal to include lean meat (beef, fish, pork, turkey, chicken), or tajik yogurt, or egg whites, or beans with a salad with olive oil and fruits (berries, pears, apples, kiwi). Avoid salt, breads, potatoes, rice, pasta, desserts. ?3. If you choose shakes, each shake would be drunk slowly, like coffee in a period of 2 hours. ?4. If you choose bars, cut each bar in 4 pieces and eat each piece in 30min ?to make each bar last 2 hours. ?5. I emphasized the importance of measuring accurately the food portion and measure it when serving the food in plate ?6. The meal portions include a specific number of forks of meat and salad. You always eat the meat portion but you can replace up to half of salad/vegetables portion with rice, potatoes or pasta, or a fruit ?if you like. The less you do it the better weight loss will be. ?7. One full-size fork is what it can be scooped on the fork without falling aside and not what can be bit with the fork. Use regular forks like those you find in a typical restaurant. ?8.? Please buy the body composition scale we discussed and send me weight measurements as soon as possible and then once a week. Always include your diet and exercise plan. 9. The best choice would be to purchase a stationary bike at home that can track calories. Let me know if you do so I can give you an exercise plan. ?10.?It is important of avoiding and for at least 18 months postoperatively and has been discussed at the infosession. ?11. Goal is to lose at least 1.5-2lbs per week ?12. Goal to lose at least 10% of your weight, which is about 24lbs. Minimum weight goal: 210lbs 13. Please follow the diet plan exactly without any change. If you don't like something about the plan or you feel hungry you need to communicate with me so I can help you revise the plan. You should not change the plan yourself. Medications: New tirzepatide (weight loss) (Zepbound) for 4 weeks 2.5 mg (0.5 mL) subcut QWEEK 2 mL 0RF E66.9 - Obesity, unspecified, Z68.39 - Body mass index [BMI] 39.0-39.9, adult
== END 2025-02-09 17:43 | disposition home or self-care (01) ==
LOC: HO.HBS 08:34
PROVIDERS: PCP Internal Medicine; Visit Provider Surgery
DX: E66.01 Morbid (severe) obesity due to excess calories (principal); Z68.39 Body mass index [BMI] 39.0-39.9, adult
CPT/HCPCS: 99205